=== PATIENT | male | born 1965 | race Caucasian/White ===

== ENCOUNTER 2020-01-29 12:08 | Observation (INO) ==
[2020-01-29] MEDS ORDERED: MoRPHine SULFATE 4 MG/ML 1 ML CARP\\VIAL IV STA (12:33)
[2020-01-29] MEDS ORDERED: ONDANSETRON INJ 2 MG/ML 2 ML VIAL IV STA (12:33)
--- NOTE | 2020-01-29 12:41 | Emergency Department Note ---
Impression & Plan Umbilical hernia, Abdominal pain ED Provider Note NAME: IRIS CALLES AGE: 54 SEX: M : 1965 ARRIVES VIA: Walk-In INFORMANT: Patient, ED PROVIDER(S): Elgin Hall MD Chief Complaint: Abdominal pain HPI: Patient does present with abdominal pain. The patient states his pain started Tuesday. It worsened Tuesday improved somewhat yesterday but is been persistent today. The patient is a thought this was related to diverticulitis. The patient does describe it as achy and occasionally sharp. Patient denies nausea or vomiting. The patient is had a recent bowel movement. No urinary symptoms. The patient denies any fevers or chills recent travel or coronavirus contacts. No lower extremity swelling. ROS: See HPI for pertinent positives and negatives. A total of 10 systems were reviewed and otherwise negative. Past medical history: See below Surgical history: See below Social history: See below Physical Exam: GENERAL: Mildly uncomfortable in appearance, NAD, non-toxic. EYE EXAM: Normal conjunctiva. PERRL, no anisocoria and EOM's grossly intact w/o pain. OROPHARYNX: Moist mucus membranes. Grossly normal dentition. NECK: Supple, no nuchal rigidity, no adenopathy, non-tender. No signs of meningismus. LUNGS: Clear to auscultation. Normal chest wall mechanics. HEART: Tachycardic and regular, no MRG. ABDOMEN: Abdomen soft, mild pain and redness around the umbilicus with likely associated hernia, pain with palpation, normo-active bowel sounds, no rebound or guarding. BACK: No CVA TTP. SKIN: No rashes and no bruising. UPPER EXTREMITIES: Upper extremities are grossly normal. LOWER EXTREMITIES: Grossly normal, no edema. NEURO EXAM: A&O x3, cranial nerves II-XII grossly intact, normal speech, moves all 4 extremities on command w/o issue. Differential diagnoses: Appendicitis, testicular torsion, infections, diverticulitis, UTI, obstruction, mesenteric ischemia, aortic pathology, inflammatory bowel disease, renal colic, PUD, pancreatitis, biliary pathology, hernia, volvulus, constipation, as well as other pathologies. Course: Patient was seen and evaluated the bedside. A full history and physical exam was performed. Patient was updated and given additional pain medication. I did speak with Susan Grimes PA-C General surgery. She will discuss the patient after being seen with the primary surgeon Dr. Jewell. EKG: None Imaging Studies: Radiology results as stated below per my review in the radiologist's interpretation: CT abd pelvis IV con only CLINICAL HISTORY: 54 years-old Male presenting with periumbilical pain since Tuesday, possible hernia. TECHNIQUE: Multidetector CT of the abdomen and pelvis was performed after the administration of intravenous contrast. IV contrast: 94 mL of Optiray 320. One or more dose lowering techniques were used consistent with the principles of ALARA (as low as reasonably achievable), including automatic exposure control, mA or kV adjustment to individual patient size, and/or use of iterative reconstruction. COMPARISON: None. CT DOSE (mGy.cm): The estimated cumulative dose is 1727.19 mGy.cm. FINDINGS: Vamp Liner topogram: Unremarkable. Lung bases: Normal heart size. No pericardial or pleural effusion. No focal infiltrate or nodule at the lung bases. Liver: Normal morphology. Density consistent with moderate hepatic steatosis. No focal lesion. Patent hepatic vasculature. Biliary: No intrahepatic or extrahepatic biliary ductal dilatation. Gallbladder contains gallstones. Pancreas: Mild parenchymal atrophy. Spleen: Normal. Adrenal glands: Normal. Kidneys and ureters: Normal. No hydronephrosis. Bladder: Normal. Pelvic organs: Prostate and seminal vesicles normal. Bowel: Mild diverticulosis of the proximal to mid sigmoid colon and distal descending colon without wall thickening or pericolonic inflammatory change. Scattered additional colonic diverticula. Trace sliding type hiatal hernia. Nor mal appendix. No bowel obstruction. Peritoneal cavity: No free fluid or intraperitoneal gas. Lymph nodes: No gross lymphadenopathy allowing for noncontrast technique. Vasculature: Normal noncontrast appearance. Abdominal wall: Fat-containing left inguinal hernia. Fat-containing umbilical hernia with infiltrated herniated fat. The peritoneal defect/neck has a diameter of 3.1 cm in comparison to the maximal hernia sac diameter of 4.4 cm. The hernia sac extends 4.8 cm beyond the expected anterior peritoneum. Mild surrounding skin thickening and subcutaneous fat infiltration. Musculoskeletal: Normal. IMPRESSION: 1. Fat-containing umbilical hernia. The presence of infiltrated herniated fat raises concern for strangulation. Correlate clinically for reducibility. Surgical consultation to be considered. 2. Hepatic steatosis. 3. Cholelithiasis. 4. Diverticulosis coli. No diverticulitis. ACT 112: Negative or not required by law. Electronically signed by: Raymond Michelle M.D. 01/29/2020 2:00 PM Dictated: 01/29/20 1352 Transcribed: 01/29/20 1352 Cardiac monitoring: An order was placed for continuous cardiac monitoring. The monitor shows a rate of 104 with sinus tachycardia rhythm. MDM: Patient was seen and evaluated the bedside. The patient was referred due to concern for umbilical pain and the possibility of a hernia. The patient does have some redness and tenderness to palpation over the umbilicus with likely associated hernia. The patient is a prior history of a hernia repair 40 years ago and vasectomy. The patient did a bladder completed was given pain and nausea medications and did have a CT of the abdomen pelvis completed. Patient's blood work was unremarkable. CT abdomen pelvis does show concern for a likely strangulated umbilical fat-containing hernia. No intestine involvement. Did attempt a brief reduction but was unsuccessful. Given this concern I did speak with the on-call general surgeon who kindly agreed to evaluate the patient. Patient was seen and evaluated by the surgeon patient was taken to the OR. Patient was admitted to the general surgery service. Past Med/Surg History Medical History Diverticulitis Elbow fracture, right Morbid obesity No significant medical problems Surgical History H/O vasectomy Hx of hernia repair Social History Preferred Language: Maori Communication Ability: Effective current occupational status: employed Feels Safe at Home: Yes Smoking Status: Former smoker Tobacco Type: smokeless tobacco ; Hx Alcohol Use: No Hx Substance Use: No Allergies Allergies Allergy/AdvReac Type Severity Reaction Status Date / Time No Known Allergies Allergy Unverified 01/29/20 13:03 Home Meds Home Medications Medication Instructions Recorded Confirmed acetaminophen [Tylenol Extra 500 mg PO Q6H PRN 01/29/20 01/29/20 Strength] Results & Data (ED) Vital Signs Vital Signs - 24 hr 01/29/20 12:19 01/29/20 14:09 01/29/20 14:11 Temperature 36.8 C Temperature Source Oral Pulse Rate 104 H 89 Pulse Rate [Apical] 93 H Pulse Rate [Left Finger] Pulse Rate from SpO2 Sensor 89 Pulse Rhythm Regular Pulse Strength Normal Pulse Strength [Left Finger] Respiratory Rate 20 18 28 H Respiratory Effort / Characteristics Non-Labored Spontaneous Respiratory Depth Normal Normal Respiratory Pattern Regular Tachypnea Blood Pressure 169/106 H 133/81 Blood Pressure [Left Arm] 133/81 Blood Pressure Mean 127 97 Blood Pressure Mean [Left Arm] 98 Blood Pressure Position Sitting Blood Pressure Position [Left Arm] Lying Pulse Oximetry 95 96 97 Oxygen Delivery Method Room Air Room Air Sepsis Recent Fever Within 48 Hours No Sepsis New/Unexplained Change in Mental Status No Sepsis Action Taken by Nursing No Action Required 01/29/20 14:13 01/29/20 14:20 01/29/20 14:30 Temperature Temperature Source Pulse Rate 91 H 87 81 Pulse Rate [Apical] Pulse Rate [Left Finger] Pulse Rate from SpO2 Sensor 92 H 87 83 Pulse Rhythm Pulse Strength Pulse Strength [Left Finger] Respiratory Rate 15 19 18 Respiratory Effort / Characteristics Respiratory Depth Respiratory Pattern Blood Pressure 122/75 Blood Pressure [Left Arm] Blood Pressure Mean 85 Blood Pressure Mean [Left Arm] Blood Pressure Position Blood Pressure Position [Left Arm] Pulse Oximetry 95 92 92 Oxygen Delivery Method Sepsis Recent Fever Within 48 Hours Sepsis New/Unexplained Change in Mental Status Sepsis Action Taken by Nursing 01/29/20 15:00 01/29/20 15:36 Temperature 37.2 C Temperature Source Oral Pulse Rate 88 Pulse Rate [Apical] Pulse Rate [Left Finger] 82 Pulse Rate from SpO2 Sensor 86 Pulse Rhythm Pulse Strength Pulse Strength [Left Finger] Normal Respiratory Rate 32 H 16 Respiratory Effort / Characteristics Non-Labored Spontaneous Respiratory Depth Normal Respiratory Pattern Regular Blood Pressure 132/82 Blood Pressure [Left Arm] 138/88 Blood Pressure Mean 86 Blood Pressure Mean [Left Arm] 104 Blood Pressure Position Blood Pressure Position [Left Arm] Sitting Pulse Oximetry 99 96 Oxygen Delivery Method Room Air Sepsis Recent Fever Within 48 Hours Sepsis New/Unexplained Change in Mental Status Sepsis Action Taken by Care Home Medications Current Medication List: was personally reviewed by me Additional Comments: No current medications. Laboratory Data Attestation: I reviewed the patient's lab results. Result diagrams: 01/29/20 12:45 01/29/20 12:45 Lab Results 01/29/20 01/29/20 01/29/20 Range/Units 12:45 12:45 13:00 WBC 8.30 (4.8-10.8) K/uL RBC 5.03 (4.7-6.1) M/uL Hgb 15.4 (14.0-18.0) g/dL Hct 44.1 (42-52) % MCV 87.7 (80-100) fL MCH 30.6 (25-34) pg MCHC 34.9 (32-36) g/dL RDW Std Deviation 43.9 (36.4-46.3) fL RDW Coeff of Re 13.7 (11.5-14.5) % Plt Count 225 (130-400) K/uL MPV 8.6 (7.4-10.4) fL Immature Gran % (Auto) 0.5 % Neut % (Auto) 71.2 % Lymph % (Auto) 20.1 % [place] % (Auto) 6.0 % Eos % (Auto) 2.0 % Baso % (Auto) 0.2 % Immature Gran # (Auto) 0.04 H (0.00-0.02) K/uL Neut # (Auto) 5.90 (1.4-6.5) K/uL Lymph # (Auto) 1.67 (1.2-3.4) K/uL [place] # (Auto) 0.50 (0.11-0.59) K/uL Eos # (Auto) 0.17 (0-0.5) K/uL Baso # (Auto) 0.02 (0-0.2) K/uL Sodium 140 (136-145) mmol/L Potassium 4.1 (3.5-5.1) mmol/L Chloride 110 H (98-107) mmol/L Carbon Dioxide 28 (21-32) mmol/L Anion Gap 2.0 L (3-11) BUN 15 (7-18) mg/dl Creatinine 1.08 (0.6-1.4) mg/dl Est Cr Clr Drug Dosing 118.4 ml/min Est GFR ( Amer) 89.1 Est GFR (Non-Af Amer) 76.9 BUN/Creatinine Ratio 14.0 (10-20) Glucose 108 H (70-99) mg/dl Calcium 8.9 (8.5-10.1) mg/dl Total Bilirubin 0.7 (0.2-1) mg/dl AST 27 (15-37) U/L ALT 64 (12-78) U/L Alkaline Phosphatase 76 (45-117) U/L Total Protein 7.9 (6.4-8.2) gm/dl Albumin 3.8 (3.4-5.0) gm/dl Globulin 4.1 H (2.5-4.0) gm/dl Albumin/Globulin Ratio 0.9 (0.9-2) Lipase 112 (73-393) U/L Urine Color Yellow Urine Appearance Clear (Clear) Urine pH 5.5 (4.5-7.5) Ur Specific [place] 1.021 (1.000-1.030) Urine Protein Negative (Negative) Urine Glucose (UA) Negative (Negative) Urine Ketones Negative (Negative) Urine Blood Negative (Negative) Urine Nitrite Negative (Negative) Urine Bilirubin Negative (Negative) Urine Urobilinogen Negative (Negative) Ur Leukocyte Esterase Negative (Negative) Administered Medications Cefazolin Sodium (Ancef 3000mg) 72.5 mls @ 130 mls/hr IV PREOP GUILLERMINA Stop: 01/29/20 23:59 Last Admin: 01/29/20 16:03 Dose: 130 mls/hr Documented by: [id number] Ioversol (Optiray 320 100ml) 94 ml IV ONCE PRN PRN Reason: Interaction Checking Stop: 02/02/20 13:34 Last Admin: 01/29/20 13:35 Dose: 94 ml Documented by: [id number] Discontinued Medications Hydromorphone HCl (Dilaudid) 1 mg IV NOW STA Stop: 01/29/20 13:58 Last Admin: 01/29/20 14:10 Dose: 1 mg Documented by: [id number] Sodium Chloride (Nss 1000ml) 1,000 mls @ 999 mls/hr IV .Q1H1M GUILLERMINA Stop: 01/29/20 13:45 Last Infusion: 01/29/20 14:10 Dose: 0 mls/hr Documented by: [id number] Admin: 01/29/20 13:01 Dose: 999 mls/hr Documented by: [id number] Morphine Sulfate (Morphine Sulfate) 8 mg IV NOW STA Stop: 01/29/20 12:34 Last Admin: 01/29/20 13:00 Dose: 8 mg Documented by: [id number] Ondansetron HCl (Zofran) 4 mg IV NOW STA Stop: 03/31/20 12:34 Last Admin: 01/29/20 13:01 Dose: 4 mg Documented by: [id number] Blood Pressure Blood Pressure Findings: Elevated blood pressure Blood Pressure Disposition: Referred to patients primary care provider Discharge Plan Visit Data *Final* Discharge Date/Time: 01/29/20 15:20 Chief Complaint: Abdominal Pain Stated Complaint: DOC REFERRED POSSIBLE HERNIA ED Provider: Elgin Hall Discharge Problem: Umbilical hernia, Abdominal pain Patient Disposition: Admitted As Inpatient Discharge Instructions Interventions: ED Discharge Assessment Last Done: 01/29/20 15:20 Discharge Problem: Umbilical hernia Qualifiers: Obstruction and gangrene presence: without obstruction or gangrene Qualified Code(s): K42.9 - Umbilical hernia without obstruction or gangrene Abdominal pain Qualifiers: Abdominal location: periumbilical Qualified Code(s): R10.33 - Periumbilical pain
[2020-01-29] MEDS ORDERED: SODIUM CHLORIDE 0.9% 1000ML 1,000 ML IV SCH (12:45)
[2020-01-29 12:53] LABS: Basophils # (auto) 0.02 K/uL (0-0.2); Basophils % (auto) 0.2 %; Eosinophils # (auto) 0.17 K/uL (0-0.5); Hematocrit (blood only) 44.1 % (42-52); Hemoglobin 15.4 g/dL (14.0-18.0); Immature Granulocytes # (auto) 0.04 K/uL (0.00-0.02); Immature Granulocytes % (auto) 0.5 %; Lymphocytes # (auto) 1.67 K/uL (1.2-3.4); Lymphocytes % (auto) 20.1 %; Mean Corpuscular Hemoglobin 30.6 pg (25-34); Mean Corpuscular Hgb Conc 34.9 g/dL (32-36); Mean Corpuscular Volume 87.7 fL (80-100); Mean Platelet Volume 8.6 fL (7.4-10.4); Neutrophils % (auto) 71.2 %; Platelet Count 225 K/uL (130-400); RDW Coefficient of Variation 13.7 % (11.5-14.5); RDW Standard Deviation 43.9 fL (36.4-46.3); Red Blood Count 5.03 M/uL (4.7-6.1)
[2020-01-29 13:08] LABS: Albumin Level 3.8 gm/dl (3.4-5.0); Calcium 8.9 mg/dl (8.5-10.1); Creatinine Clr Calc Pharmacy 118.4 ml/min; Est GFR (African American) 89.1; Est GFR (Non-African American) 76.9; Potassium 4.1 mmol/L (3.5-5.1)
[2020-01-29 13:10] LABS: Appearance Urine Clear (Clear); Bilirubin Urine Negative (Negative); Blood Urine Negative (Negative); Color Urine Yellow; Glucose Urine UA Negative (Negative); Ketones Urine Negative (Negative); Leukocyte Esterase Urine Negative (Negative); Nitrite Urine Negative (Negative); Protein Urine Negative (Negative); Specific Gravity Urine 1.021 (1.000-1.030); Urobilinogen Urine Negative (Negative); pH Urine 5.5 (4.5-7.5)
[2020-01-29 13:11] LABS: Albumin Globulin Ratio 0.9 (0.9-2); Bilirubin,Total 0.7 mg/dl (0.2-1); Globulin 4.1 gm/dl (2.5-4.0); Total Protein 7.9 gm/dl (6.4-8.2)
[2020-01-29] MEDS ORDERED: IOVERSOL 100ml IV PRN (13:35)
[2020-01-29] MEDS ORDERED: HYDROmorphone INJ 1 MG/ML SYRINGE IV STA (13:57)
--- NOTE | 2020-01-29 14:01 | CT Scan Report ---
CT abd pelvis IV con only CLINICAL HISTORY: 54 years-old Male presenting with periumbilical pain since Tuesday, possible herni a. TECHNIQUE: Multidetector CT of the abdomen and pelvis was performed after the administration of intra venous contrast. IV contrast: 94 mL of Optiray 320. One or more dose lowering techniques were used co nsistent with the principles of ALARA (as low as reasonably achievable), including automatic exposure control, mA or kV adjustment to individual patient size, and/or use of iterative reconstruction. COMPARISON: None. CT DOSE (mGy.cm): The estimated cumulative dose is 1727.19 mGy.cm. FINDINGS: Commercial Fisher topogram: Unremarkable. Lung bases: Normal heart size. No pericardial or pleural effusion. No focal infiltrate or nodule at t he lung bases. Liver: Normal morphology. Density consistent with moderate hepatic steatosis. No focal lesion. Patent hepatic vasculature. Biliary: No intrahepatic or extrahepatic biliary ductal dilatation. Gallbladder contains gallstones. Pancreas: Mild parenchymal atrophy. Spleen: Normal. Adrenal glands: Normal. Kidneys and ureters: Normal. No hydronephrosis. Bladder: Normal. Pelvic organs: Prostate and seminal vesicles normal. Bowel: Mild diverticulosis of the proximal to mid sigmoid colon and distal descending colon without w all thickening or pericolonic inflammatory change. Scattered additional colonic diverticula. Trace sl iding type hiatal hernia. Normal appendix. No bowel obstruction. Peritoneal cavity: No free fluid or intraperitoneal gas. Lymph nodes: No gross lymphadenopathy allowing for noncontrast technique. Vasculature: Normal noncontrast appearance. Abdominal wall: Fat-containing left inguinal hernia. Fat-containing umbilical hernia with infiltrated herniated fat. The peritoneal defect/neck has a diameter of 3.1 cm in comparison to the maximal sera ia sac diameter of 4.4 cm. The hernia sac extends 4.8 cm beyond the expected anterior peritoneum. Mil d surrounding skin thickening and subcutaneous fat infiltration. Musculoskeletal: Normal. IMPRESSION: 1. Fat-containing umbilical hernia. The presence of infiltrated herniated fat raises concern for str angulation. Correlate clinically for reducibility. Surgical consultation to be considered. 2. Hepatic steatosis. 3. Cholelithiasis. 4. Diverticulosis coli. No diverticulitis. ACT 112: Negative or not required by law. Electronically signed by: Raymond Michelle M.D. 01/29/2020 2:00 PM
[2020-01-29] MEDS ORDERED: KETOROLAC 30 MG/ML VIAL ONE (15:20)
[2020-01-29] MEDS ORDERED: ePHEDrine sulfate 50 MG/ML SYR ONE (15:20)
[2020-01-29] MEDS ORDERED: ONDANSETRON INJ 2 MG/ML 2 ML VIAL ONE (15:20)
[2020-01-29] MEDS ORDERED: GLYCOPYRROLATE 0.2 MG/ML VIAL ONE (15:20)
[2020-01-29] MEDS ORDERED: DEXAMETHASONE SOD INJ 4 MG/ML VIAL ONE (15:20)
[2020-01-29] MEDS ORDERED: fentaNYL citrate 100 MCG/2 ML VIAL ONE (15:20)
[2020-01-29] MEDS ORDERED: NEOSTIGMINE METHYLSULFATE 5 MG/5 ML SYR ONE (15:20)
[2020-01-29] MEDS ORDERED: SUCCINYLCHOLINE CHLORIDE 20 MG/ML 10 ML VIAL ONE (15:20)
[2020-01-29] MEDS ORDERED: LARYING-O-JET KIT (LTA) ONE (15:20)
[2020-01-29] MEDS ORDERED: PROPOFOL IV EMULSION 10 MG/ML 20 ML VIAL IV ONE (15:20)
[2020-01-29] MEDS ORDERED: LIDOCAINE HCL 2% 2 ML VIAL/AMP(20MG/ML) INFIL ONE (15:20)
[2020-01-29] MEDS ORDERED: MIDAZOLAM HCL 1 MG/ML 2ML VIAL ONE (15:20)
[2020-01-29] MEDS ORDERED: ROCURONIUM BROMIDE 10 MG/ML 5 ML VIAL ONE (15:20)
--- NOTE | 2020-01-29 15:24 | History & Physical Report ---
Date of Service January 29, 2020 Assessment & Plan (1) Incarcerated umbilical hernia: 54 year-old morbidly obese male who presented to ED from PCP office with likely incarcerated umbilical hernia. Pain started Tuesday and escalated on Tuesday. Overlying erythema began yesterday. No fever, nausea or vomiting. CT scan of abd/pelvis with IV Contrast showing umbilical hernia measuring 3.1 cm with incarcerated and infiltrated omentum concerning for strangulation. Unable to be reduced one exam given tenderness. Plan: Given evidence on CT scan and overlying erythema, recommend surgical repair of umbilical hernia with possible mesh. Dr. Jewell informed patient of procedure and risks of possible bleeding, infection, and recurrence of hernia. Also discussed restrictions, no heavy lifting over 25 pounds for 4 weeks. Patient understood and informed consent obtained. Keep NPO Will go to med/surg postop [address] Jewell was present during my examination and agrees with above. History of Present Illness Chief Complaint: abdominal pain at belly button Primary Care Provider: Raymond Moody MD Mundo is a pleasant 54 year-old male who was referred to ED by PCP Dr. Cheema for likely incarcerated umbilical hernia. Mundo states he had abdominal pain that started Tuesday and then slowly increased in severity on Tuesday in which he was unable to stand up straight. States pain improved slightly yesterday. Pain at the belly button. Noticed redness of his skin yesterday. Denies of any fever, chills, nausea, vomiting, chest pain, shortness of breath, inability to pass bowels, blood in stools, or black/tarry stools. Has had hernia for likely 6 years but never had any issues with it. Prior history of right inguinal he rnia repair in his 20's. No other abdominal surgery. No home medications. No allergies. Allergies Allergy/AdvReac Type Severity Reaction Status Date / Time No Known Allergies Allergy Unverified 01/29/20 13:03 Home Medications Home Medications Medication Instructions Recorded Confirmed Type acetaminophen [Tylenol Extra 500 mg PO Q6H PRN 01/29/20 01/29/20 History Strength] Past Med/Surg History Medical History (Updated 01/29/20 @ 15:24 by Susan Camp PA-C) Diverticulitis Elbow fracture, right Morbid obesity No significant medical problems Surgical History H/O vasectomy Hx of hernia repair Social History Preferred Language: Romansh Communication Ability: Effective current occupational status: employed Feels Safe at Home: Yes Smoking Status: Former smoker Tobacco Type: smokeless tobacco ; Hx Alcohol Use: No Hx Substance Use: No Review of Systems Review of Systems: All systems reviewed & are unremarkable except as noted in HPI & below Physical Exam Constitutional: WD/WN, vitals as above + morbidly obese; no acute distress Respiratory: normal respiratory effort, lungs clear to auscultation Cardiovascular: RRR, no murmur, no edema Gastrointestinal (Abdomen): Percussion/Palpation: + abdomen tender (at umbilicus on gentle touch), + guarding (at umbilicus), abdomen soft and + hernia (umbilical hernia, nonreducible, with associated erythema); abdomen not rigid Skin: no rashes, warm and dry Psychiatric: A+Ox3, euthymic affect Results & Data Results & Data ([facility]) Vital Signs (Past 12 Hours) Vital Signs Temp Pulse Pulse Resp BP BP Pulse Ox 01/29/20 14:30 81 18 122/75 92 01/29/20 14:20 87 19 92 01/29/20 14:13 91 H 15 95 01/29/20 14:11 93 H 28 H 133/81 97 01/29/20 14:09 89 18 133/81 96 01/29/20 12:19 36.8 C 104 H 20 169/106 H 95 Laboratory Results 01/29/20 01/29/20 01/29/20 Range/Units 13:00 12:45 12:45 WBC 8.30 (4.8-10.8) K/uL RBC 5.03 (4.7-6.1) M/uL Hgb 15.4 (14.0-18.0) g/dL Hct 44.1 (42-52) % MCV 87.7 (80-100) fL MCH 30.6 (25-34) pg MCHC 34.9 (32-36) g/dL RDW Std Deviation 43.9 (36.4-46.3) fL RDW Coeff of Re 13.7 (11.5-14.5) % Plt Count 225 (130-400) K/uL MPV 8.6 (7.4-10.4) fL Immature Gran % (Auto) 0.5 % Neut % (Auto) 71.2 % Lymph % (Auto) 20.1 % [place] % (Auto) 6.0 % Eos % (Auto) 2.0 % Baso % (Auto) 0.2 % Immature Gran # (Auto) 0.04 H (0.00-0.02) K/uL Neut # (Auto) 5.90 (1.4-6.5) K/uL Lymph # (Auto) 1.67 (1.2-3.4) K/uL [place] # (Auto) 0.50 (0.11-0.59) K/uL Eos # (Auto) 0.17 (0-0.5) K/uL Baso # (Auto) 0.02 (0-0.2) K/uL Sodium 140 (136-145) mmol/L Potassium 4.1 (3.5-5.1) mmol/L Chloride 110 H (98-107) mmol/L Carbon Dioxide 28 (21-32) mmol/L Anion Gap 2.0 L (3-11) BUN 15 (7-18) mg/dl Creatinine 1.08 (0.6-1.4) mg/dl Est Cr Clr Drug Dosing 118.4 ml/min Est GFR ( Amer) 89.1 Est GFR (Non-Af Amer) 76.9 BUN/Creatinine Ratio 14.0 (10-20) Glucose 108 H (70-99) mg/dl Calcium 8.9 (8.5-10.1) mg/dl Total Bilirubin 0.7 (0.2-1) mg/dl AST 27 (15-37) U/L ALT 64 (12-78) U/L Alkaline Phosphatase 76 (45-117) U/L Total Protein 7.9 (6.4-8.2) gm/dl Albumin 3.8 (3.4-5.0) gm/dl Globulin 4.1 H (2.5-4.0) gm/dl Albumin/Globulin Ratio 0.9 (0.9-2) Lipase 112 (73-393) U/L Urine Color Yellow Urine Appearance Clear (Clear) Urine pH 5.5 (4.5-7.5) Ur Specific [place] 1.021 (1.000-1.030) Urine Protein Negative (Negative) Urine Glucose (UA) Negative (Negative) Urine Ketones Negative (Negative) Urine Blood Negative (Negative) Urine Nitrite Negative (Negative) Urine Bilirubin Negative (Negative) Urine Urobilinogen Negative (Negative) Ur Leukocyte Esterase Negative (Negative) Diagnostic Findings CT abd pelvis IV con only CLINICAL HISTORY: 54 years-old Male presenting with periumbilical pain since Tuesday, possible hernia. TECHNIQUE: Multidetector CT of the abdomen and pelvis was performed after the administration of intravenous contrast. IV contrast: 94 mL of Optiray 320. One or more dose lowering techniques were used consistent with the principles of ALARA (as low as reasonably achievable), including automatic exposure control, mA or kV adjustment to individual patient size, and/or use of iterative reconstruction. COMPARISON: None. CT DOSE (mGy.cm): The estimated cumulative dose is 1727.19 mGy.cm. FINDINGS: [employer] topogram: Unremarkable. Lung bases: Normal heart size. No pericardial or pleural effusion. No focal infiltrate or nodule at the lung bases. Liver: Normal morphology. Density consistent with moderate hepatic steatosis. No focal lesion. Patent hepatic vasculature. Biliary: No intrahepatic or extrahepatic biliary ductal dilatation. Gallbladder contains gallstones. Pancreas: Mild parenchymal atrophy. Spleen: Normal. Adrenal glands: Normal. Kidneys and ureters: Normal. No hydronephrosis. Bladder: Normal. Pelvic organs: Prostate and seminal vesicles normal. Bowel: Mild diverticulosis of the proximal to mid sigmoid colon and distal descending colon without wall thickening or pericolonic inflammatory change. Scattered additional colonic diverticula. Trace sliding type hiatal hernia. Normal appendix. No bowel obstruction. Peritoneal cavity: No free fluid or intraperitoneal gas. Lymph nodes: No gross lymphadenopathy allowing for noncontrast technique. Vasculature: Normal noncontrast appearance. Abdominal wall: Fat-containing left inguinal hernia. Fat-containing umbilical hernia with infiltrated herniated fat. The peritoneal defect/neck has a diameter of 3.1 cm in comparison to the maximal hernia sac diameter of 4.4 cm. The hernia sac extends 4.8 cm beyond the expected anterior peritoneum. Mild surrounding skin thickening and subcutaneous fat infiltration. Musculoskeletal: Normal. IMPRESSION: 1. Fat-containing umbilical hernia. The presence of infiltrated herniated fat raises concern for strangulation. Correlate clinically for reducibility. Surgical consultation to be considered. 2. Hepatic steatosis. 3. Cholelithiasis. 4. Diverticulosis coli. No diverticulitis. Code Status & VTE Plan VTE Prophylaxis Plan VTE Prophylaxis will be ordered: Yes
[2020-01-29] MEDS ORDERED: BUPIVACAINE 0.5 % 5 MG/1 ML MPF 30ML VIAL ONE (15:27)
[2020-01-29] MEDS ORDERED: BACITRACIN OINT 15 GM TUBE ONE (15:27)
[2020-01-29] MEDS ORDERED: LIDOCAINE HCL 1% 20 ML VIAL ONE (15:28)
[2020-01-29] MEDS ORDERED: CEFAZOLIN 2000MG 2,000 MG/15 ML SYR IV ONE (15:28)
[2020-01-29] MEDS ORDERED: CEFAZOLIN 3000MG 72.5 ML IV SCH (15:38)
--- NOTE | 2020-01-29 15:38 | History & Physical Bridge Note ---
Date of Service January 29, 2020 History & Physical Bridge Note I have examined the patient, reviewed the History & Physical and in the interval since the performance of the History & Physical I have noted the following changes of clinical significance: no changes noted, i did talk to pt about benefits, risks and alternatives of the open repair umbilical hernia possible mesh, the risks - infection, bleeding, hernia recurrence, bowel resection, complications relate to mesh, pt understood, he agrees with the surgery, i answered all questions,
--- NOTE | 2020-01-29 15:40 | Anesthesiology Consultation ---
Date of Service January 29, 2020 Assessment & Plan (1) Encounter for pre-operative examination: Chart Review Chart Review: Acceptable Risk for Surgery and Patient NOT seen in Pre Admission Testing Consults Requested none ASA [id number] Proposed Anesthesia Anesthesia Type: General Risk / Benefits Reviewed With: PT / POA / Parent / Guardian, Accepts Plan and Informed Consent Obtained History Surgery Operation Date: 01/29/20 07:00 Proposed Procedures p Oepn Umbilical Hernia Repair, Possible Mesh - Marcella Jewell MD Height/Weight Height: 6 ft 2 in Weight: 147.5 kg Allergies Allergy/AdvReac Type Severity Reaction Status Date / Time No Known Allergies Allergy Unverified 01/29/20 13:03 Medications Home Medications Medication Instructions Recorded Confirmed Last Taken acetaminophen [Tylenol Extra 500 mg PO Q6H PRN 01/29/20 01/29/20 01/28/20 12:00 Strength] 1000 mg Active Medications Generic Name Dose Route Start Last Admin Trade Name Freq PRN Reason Stop Dose Admin Ioversol 94 ml 01/29/20 13:35 01/29/20 13:35 Optiray 320 100ml IV 02/02/20 13:34 94 ml ONCE PRN Administration Interaction Checking NPO Date Last Intake of Fluids: 01/29/20 Time Last Intake of Fluids: 07:00 Date Last Intake of Solids: 01/28/20 Time Last Intake of Solids: 22:30 Past Medical History Medical History Diverticulitis Elbow fracture, right Morbid obesity No significant medical problems Exercise / Class Metabolic Activity II 4-5 Yardwork/Stairs/Walk up hill Negative for chest pain or shortness of breath. Past Surgical History Surgical History H/O vasectomy Hx of hernia repair Past Anesthesia History No Hx of Anesthesia Complications History of PONV No Hx of PONV Social History Smoking Status: Former smoker tobacco type: smokeless tobacco Hx Alcohol Use: No Hx Substance Use: No Review of Systems Patient denies active symptoms of GERD. Physical Exam Vital Signs Last Vital Signs Temp 37.2 C 01/29/20 15:36 Pulse 82 01/29/20 15:36 Resp 16 01/29/20 15:36 BP 138/88 01/29/20 15:36 Pulse Ox 96 01/29/20 15:36 Constitutional + morbidly obese ENMT Mouth: no TMJ abnormality and oral opening not small Thyromental Distance: > or= 3.5 Finger Breadths Mallampati Class: II Neck normal visual inspection, + thick neck and + facial hair; neck extension not limited Respiratory normal respiratory effort Auscultation: lungs clear to auscultation bilaterally Cardiovascular Rate/Rhythm: regular rate and regular rhythm Heart Sounds: no murmur Neurologic moves all extremities Psychiatric Orientation: alert and oriented x 3 Testing Laboratory Results 01/29/20 12:45 01/29/20 12:45 Urine Color Yellow 01/29/20 13:00 Urine Appearance Clear (Clear) 01/29/20 13:00 Urine pH 5.5 (4.5-7.5) 01/29/20 13:00 Ur Specific [place] 1.021 (1.000-1.030) 01/29/20 13:00 Urine Protein Negative (Negative) 01/29/20 13:00 Urine Glucose (UA) Negative (Negative) 01/29/20 13:00 Urine Ketones Negative (Negative) 01/29/20 13:00 Urine Nitrite Negative (Negative) 01/29/20 13:00 Ur Leukocyte Esterase Negative (Negative) 01/29/20 13:00 Electrocardiogram Date: 01/29/20 Findings: + NSR @ (81) Per computer read, "pulmonary disease pattern", LAFB
[2020-01-29] MEDS ORDERED: PROMETHAZINE HCL 12.5 MG in SODIUM CHLORIDE 0.9% 50 ML IV PRN (16:04)
[2020-01-29] MEDS ORDERED: ATROPINE SULFATE 0.1 MG/ML 10ML SYR IV PRN (16:04)
[2020-01-29] MEDS ORDERED: fentaNYL citrate 100 MCG/2 ML VIAL IV PRN (16:04)
[2020-01-29] MEDS ORDERED: ePHEDrine sulfate 50 MG/ML AMP IV PRN (16:04)
[2020-01-29] MEDS ORDERED: HYDROmorphone INJ 1 MG/ML SYRINGE IV PRN ×3 (16:04→18:57)
[2020-01-29] MEDS ORDERED: ONDANSETRON INJ 2 MG/ML 2 ML VIAL IV PRN ×2 (16:04→17:03)
--- NOTE | 2020-01-29 16:59 | Post Operative Brief Note ---
Immediate Post Op Note v1 Date of Surgery January 29, 2020 Pre & Post Diagnosis Operation Date: 01/29/20 07:00 Pre-Op Diagnosis: incarcerated Umbilical hernia Post-Op Diagnosis: incarcerated Umbilical hernia I identified the patient and participated in the time-out.: Yes Procedure Operation Date: 01/29/20 07:00 Actual Procedures p Open Umbilical Hernia Repair(Not Applicable) - Marcella Jewell MD Surgeon Marcella Jewell MD [facility] Professor KULWINDER Chavarria Estimated Blood Loss 10 Findings Consistent with Post-Op Diagnosis incarcerated umbilical hernia with omental fat, the hernia size about 2x2cm, cellulitis, Fluids 750ml Specimens none Anesthesia Type General Complications none Disposition Accompanied Patient To Recovery: Yes Disposition: Recovery Room Overlapping Procedure I was immediately available: during the entire case.
[2020-01-29] MEDS ORDERED: ACETAMINOPHEN 325 MG TAB PO PRN (17:03)
[2020-01-29] MEDS ORDERED: ACETAMINOPHEN 1000 MG/100 ML IV IV ONE (17:27)
[2020-01-29] MEDS ORDERED: ACETAMINOPHEN 1000 MG/100 ML IV IV STA (17:27)
[2020-01-29] MEDS ORDERED: HYDROmorphone INJ 2 MG/ML SYR/VIAL ONE (17:35)
--- NOTE | 2020-01-29 17:39 | Operative Report (OR) ---
DATE OF OPERATION: 01/29/2020 PREOPERATIVE DIAGNOSIS: Incarcerated umbilical hernia. POSTOPERATIVE DIAGNOSIS: Incarcerated umbilical hernia. OPERATION: Open repair of incarcerated umbilical hernia. SURGEON: Marcella Jewell MD. FAMILY LAW ATTORNEY: Susan Camp PA-C. ANESTHESIA: General. ESTIMATED BLOOD LOSS: About 10 mL. FINDINGS: Incarcerated umbilical hernia. Hernia contained omental fat. The hernia size about 2 x 2 cm with cellulitis. COMPLICATIONS: None. INDICATIONS FOR THE PROCEDURE: This is a 54-year-old gentleman who presented to ED with 5 days of periumbilical pain with some redness around the umbilical area. The patient had a CT scan diagnosis of incarcerated umbilical hernia. I recommended to do the open repair of incarcerated umbilical hernia, possible mesh. I did talk to the patient about the benefit, risk, and alternate procedure. I indicated the risks may include but not limited to such as bleeding, infection, hernia recurrence, injury to the bowel, complication related to mesh. The patient understands. He signed informed consent and I answered all questions. DETAILS OF PROCEDURE: We brought the patient to the OR, put the patient in the supine position. The patient received SCD on bilateral legs to prevent DVT. Also, patient received 3 grams of Ancef IV for prophylactic antibiotic. The patient received general anesthesia without difficulty. The abdomen was prepped and draped in routine sterile fashion. After timeout, I made the incision just below the umbilicus, a fish-mouth incision, and then mobilized the umbilicus. We found the patient had incarcerated umbilical hernia. Then, we opened the hernia sac and found the patient had omental fat contained in the hernia sac. We were able to reduce all the hernia content and omental fat back to abdominal cavity. Then, we found the patient had a hernia size of about 2 x 2 cm. Based on the patient had cellulitis around the umbilical area, I decided to repair the hernia without mesh. Used #1 Ethibond suture interruptedly and closed the hernia fascial layer, then tied each suture one by one. The hernia closed nicely, no tension. Hemostasis was obtained. Then, I used 2-0 Vicryl and sutured the umbilicus back to original location. Then, I used 2-0 Vicryl to close subcutaneous layer interruptedly, closed skin by using 4-0 Vicryl continuous running and also we injected local anesthesia by using 1% lidocaine mixed with 0.5% Marcaine around the umbilical area. Then, we put the dressing on. The patient tolerated the procedure well. All instrument, needle and sponge count were correct x2 at the end of case. The patient was transferred to recovery room in stable condition. I attest to the content of the Intraoperative Record and any orders documented therein. Any exception s are noted below.
[2020-01-29] MEDS: LACTATED RINGER'S 1,000 ML IV SCH (18:45)
[2020-01-29] MEDS ORDERED: ACETAMINOPHEN 500 MG TAB PO PRN (18:57)
[2020-01-29] MEDS ORDERED: INFLUENZA VIRUS QUAD VACCINE 0.5 ML SYR IM ONE (19:08)
[2020-01-29] MEDS ORDERED: INFLUENZA ADMINISTRATION CHARGE ONE (19:08)
--- NOTE | 2020-01-29 19:26 | Anesthesiology Progress Note ---
Date of Service January 29, 2020 Anesthesia Post Procedure Vital Signs Vital Signs: Temp Pulse Pulse Pulse Pulse Resp BP 01/29/20 19:18 36.5 C 65 18 01/29/20 18:37 36.5 C 83 17 01/29/20 18:15 79 19 01/29/20 18:05 36.2 C L 78 20 01/29/20 17:55 79 20 01/29/20 17:45 62 12 01/29/20 17:35 70 19 01/29/20 17:25 74 15 01/29/20 17:18 36.6 C 68 17 01/29/20 15:36 37.2 C 82 16 01/29/20 15:00 88 32 H 132/82 01/29/20 14:30 81 18 122/75 01/29/20 14:20 87 19 01/29/20 14:13 91 H 15 01/29/20 14:11 93 H 28 H 01/29/20 14:09 89 18 133/81 01/29/20 12:19 36.8 C 104 H 20 169/106 H BP Pulse Ox 01/29/20 19:18 132/77 97 01/29/20 18:37 109/72 99 01/29/20 18:15 111/75 97 01/29/20 18:05 129/63 99 01/29/20 17:55 119/81 99 01/29/20 17:45 103/74 92 01/29/20 17:35 129/79 97 01/29/20 17:25 110/73 97 01/29/20 17:18 172/91 H 94 01/29/20 15:36 138/88 96 01/29/20 15:00 99 01/29/20 14:30 92 01/29/20 14:20 92 01/29/20 14:13 95 01/29/20 14:11 133/81 97 01/29/20 14:09 96 01/29/20 12:19 95 Pain Intensity Abdomen: Pain Intensity: 4 Transfer of Care Handoff Completed per policy Notes Mental Status: alert / awake / arousable and participated in evaluation Patient Amnestic to Procedure: Yes Nausea / Vomiting: adequately controlled Pain: adequately controlled Airway Patency, RR, SpO2: stable & adequate BP & HR: stable & adequate Hydration State: stable & adequate Anesthetic Complications: no major complications apparent and Pt Satisfied with anesthetic care
[2020-01-29] MEDS: CEFAZOLIN 1000MG 1,000 MG/7.5 ML SYR IV SCH (23:51)
[2020-01-30] MEDS: LACTATED RINGER'S 1,000 ML IV SCH (03:44)
[2020-01-30 06:10] LABS: Basophils # (auto) 0.01 K/uL (0-0.2); Basophils % (auto) 0.1 %; Eosinophils # (auto) 0.01 K/uL (0-0.5); Eosinophils % (auto) 0.1 %; Hematocrit (blood only) 40.6 % (42-52); Hemoglobin 13.8 g/dL (14.0-18.0); Immature Granulocytes # (auto) 0.04 K/uL (0.00-0.02); Immature Granulocytes % (auto) 0.3 %; Lymphocytes # (auto) 1.33 K/uL (1.2-3.4); Lymphocytes % (auto) 11.3 %; Mean Corpuscular Hemoglobin 30.3 pg (25-34); Mean Platelet Volume 8.8 fL (7.4-10.4); Monocytes # (auto) 0.65 K/uL (0.11-0.59); Monocytes % (auto) 5.5 %; Neutrophils # (auto) 9.71 K/uL (1.4-6.5); Neutrophils % (auto) 82.7 %; Platelet Count 235 K/uL (130-400); RDW Coefficient of Variation 13.9 % (11.5-14.5); RDW Standard Deviation 45.7 fL (36.4-46.3); Red Blood Count 4.56 M/uL (4.7-6.1); White Blood Count 11.75 K/uL (4.8-10.8)
--- NOTE | 2020-01-30 07:36 | Anesthesiology Progress Note ---
Date of Service January 30, 2020 Anesthesia Post Procedure Vital Signs Vital Signs: Temp Pulse Pulse Pulse Pulse Resp BP 01/30/20 07:05 36.7 C 70 18 01/30/20 03:19 36.6 C 98 H 18 01/29/20 23:33 36.6 C 91 H 16 01/29/20 22:31 01/29/20 21:36 36.7 C 94 H 18 01/29/20 20:33 36.6 C 94 H 18 01/29/20 19:46 36.4 C L 76 20 01/29/20 19:18 36.5 C 65 18 01/29/20 18:37 36.5 C 83 17 01/29/20 18:15 79 19 01/29/20 18:05 36.2 C L 78 20 01/29/20 17:55 79 20 01/29/20 17:45 62 12 01/29/20 17:35 70 19 01/29/20 17:25 74 15 01/29/20 17:18 36.6 C 68 17 01/29/20 15:36 37.2 C 82 16 01/29/20 15:00 88 32 H 132/82 01/29/20 14:30 81 18 122/75 01/29/20 14:20 87 19 01/29/20 14:13 91 H 15 01/29/20 14:11 93 H 28 H 01/29/20 14:09 89 18 133/81 01/29/20 12:19 36.8 C 104 H 20 169/106 H BP Pulse Ox 01/30/20 07:05 123/76 96 01/30/20 03:19 109/65 94 01/29/20 23:33 104/66 96 01/29/20 22:31 94 01/29/20 21:36 114/64 97 01/29/20 20:33 104/64 98 01/29/20 19:46 113/66 98 01/29/20 19:18 132/77 97 01/29/20 18:37 109/72 99 01/29/20 18:15 111/75 97 01/29/20 18:05 129/63 99 01/29/20 17:55 119/81 99 01/29/20 17:45 103/74 92 01/29/20 17:35 129/79 97 01/29/20 17:25 110/73 97 01/29/20 17:18 172/91 H 94 01/29/20 15:36 138/88 96 01/29/20 15:00 99 01/29/20 14:30 92 01/29/20 14:20 92 01/29/20 14:13 95 01/29/20 14:11 133/81 97 01/29/20 14:09 96 01/29/20 12:19 95 Pain Intensity Abdomen: Pain Intensity: 4 Notes Mental Status: alert / awake / arousable and participated in evaluation Patient Amnestic to Procedure: Yes Nausea / Vomiting: adequately controlled Pain: adequately controlled Airway Patency, RR, SpO2: stable & adequate BP & HR: stable & adequate Hydration State: stable & adequate Anesthetic Complications: no major complications apparent and Pt Satisfied with anesthetic care
[2020-01-30] MEDS: CEFAZOLIN 1000MG 1,000 MG/7.5 ML SYR IV SCH ×2 (07:58→15:39)
[2020-01-30] MEDS: OXYCODONE/ACETAMINOPHEN 5mg/325mg TAB PO PRN ×2 (07:58→11:57)
[2020-01-30] MEDS ORDERED: SODIUM CHLORIDE 0.9% 1000ML 1,000 ML IV ONE (08:56)
--- NOTE | 2020-01-30 11:41 | Surgery Progress Note ---
Date of Service January 30, 2020 Assessment & Plan (1) Incarcerated umbilical hernia: POD # 1 s/p open repair of incarcerated umbilical hernia without mesh given cellulitis - afebrile, mild leukocytosis of 11K (likely postoperative response) - mild postoperative pain controlled with percocet - erythema stable, no increase in cellulitis - adhesive tape allergy with skin blisters, added to allergies Plan: Continue reg diet continue pErcocet and Tylenol prn pain continue IV cefazolin PO Colace daily Bacitracin to skin blisters encouraged ambulation today hopeful discharge tomorrow morning Dr. Jewell has seen and examined pt, agrees with above Subjective feeling okay this morning pain about 3-4/10 after Percocet no nausea or vomiting, felt bloated after breakfast +flatus no bowel movement Physical Exam Constitutional: WD/WN, vitals as above no acute distress Respiratory: normal respiratory effort; no respiratory distress Gastrointestinal (Abdomen): Inspection/Auscultation: abdomen normal to inspection and normal bowel sounds; abdomen not distended Percussion/Palpation: + abdomen tender (at incision site) and abdomen soft; no guarding and abdomen not rigid Skin: no rashes, warm and dry + erythema (inferior to umbilicus no spreading more than preop) and + incision (covered with steri strips, blisters from adhesive tape) Psychiatric: A+Ox3, euthymic affect Results & Data Vital Signs (Past 12 Hours) Vital Signs Temp Pulse Resp BP Pulse Ox 01/30/20 11:11 36.7 C 86 18 138/81 94 01/30/20 07:05 36.7 C 70 18 123/76 96 01/30/20 03:19 36.6 C 98 H 18 109/65 94 Laboratory Results 01/30/20 01/29/20 01/29/20 Range/Units 05:46 13:00 12:45 WBC 11.75 H (4.8-10.8) K/uL RBC 4.56 L (4.7-6.1) M/uL Hgb 13.8 L (14.0-18.0) g/dL Hct 40.6 L (42-52) % MCV 89.0 (80-100) fL MCH 30.3 (25-34) pg MCHC 34.0 (32-36) g/dL RDW Std Deviation 45.7 (36.4-46.3) fL RDW Coeff of Re 13.9 (11.5-14.5) % Plt Count 235 (130-400) K/uL MPV 8.8 (7.4-10.4) fL Immature Gran % (Auto) 0.3 % Neut % (Auto) 82.7 % Lymph % (Auto) 11.3 % [place] % (Auto) 5.5 % Eos % (Auto) 0.1 % Baso % (Auto) 0.1 % Immature Gran # (Auto) 0.04 H (0.00-0.02) K/uL Neut # (Auto) 9.71 H (1.4-6.5) K/uL Lymph # (Auto) 1.33 (1.2-3.4) K/uL [place] # (Auto) 0.65 H (0.11-0.59) K/uL Eos # (Auto) 0.01 (0-0.5) K/uL Baso # (Auto) 0.01 (0-0.2) K/uL Sodium 140 (136-145) mmol/L Potassium 4.1 (3.5-5.1) mmol/L Chloride 110 H (98-107) mmol/L Carbon Dioxide 28 (21-32) mmol/L Anion Gap 2.0 L (3-11) BUN 15 (7-18) mg/dl Creatinine 1.08 (0.6-1.4) mg/dl Est Cr Clr Drug Dosing 118.4 ml/min Est GFR ( Amer) 89.1 Est GFR (Non-Af Amer) 76.9 BUN/Creatinine Ratio 14.0 (10-20) Glucose 108 H (70-99) mg/dl Calcium 8.9 (8.5-10.1) mg/dl Total Bilirubin 0.7 (0.2-1) mg/dl AST 27 (15-37) U/L ALT 64 (12-78) U/L Alkaline Phosphatase 76 (45-117) U/L Total Protein 7.9 (6.4-8.2) gm/dl Albumin 3.8 (3.4-5.0) gm/dl Globulin 4.1 H (2.5-4.0) gm/dl Albumin/Globulin Ratio 0.9 (0.9-2) Lipase 112 (73-393) U/L Urine Color Yellow Urine Appearance Clear (Clear) Urine pH 5.5 (4.5-7.5) Ur Specific [place] 1.021 (1.000-1.030) Urine Protein Negative (Negative) Urine Glucose (UA) Negative (Negative) Urine Ketones Negative (Negative) Urine Blood Negative (Negative) Urine Nitrite Negative (Negative) Urine Bilirubin Negative (Negative) Urine Urobilinogen Negative (Negative) Ur Leukocyte Esterase Negative (Negative) 01/29/20 Range/Units 12:45 WBC 8.30 (4.8-10.8) K/uL RBC 5.03 (4.7-6.1) M/uL Hgb 15.4 (14.0-18.0) g/dL Hct 44.1 (42-52) % MCV 87.7 (80-100) fL MCH 30.6 (25-34) pg MCHC 34.9 (32-36) g/dL RDW Std Deviation 43.9 (36.4-46.3) fL RDW Coeff of Re 13.7 (11.5-14.5) % Plt Count 225 (130-400) K/uL MPV 8.6 (7.4-10.4) fL Immature Gran % (Auto) 0.5 % Neut % (Auto) 71.2 % Lymph % (Auto) 20.1 % [place] % (Auto) 6.0 % Eos % (Auto) 2.0 % Baso % (Auto) 0.2 % Immature Gran # (Auto) 0.04 H (0.00-0.02) K/uL Neut # (Auto) 5.90 (1.4-6.5) K/uL Lymph # (Auto) 1.67 (1.2-3.4) K/uL [place] # (Auto) 0.50 (0.11-0.59) K/uL Eos # (Auto) 0.17 (0-0.5) K/uL Baso # (Auto) 0.02 (0-0.2) K/uL Sodium (136-145) mmol/L Potassium (3.5-5.1) mmol/L Chloride (98-107) mmol/L Carbon Dioxide (21-32) mmol/L Anion Gap (3-11) BUN (7-18) mg/dl Creatinine (0.6-1.4) mg/dl Est Cr Clr Drug Dosing ml/min Est GFR ( Amer) Est GFR (Non-Af Amer) BUN/Creatinine Ratio (10-20) Glucose (70-99) mg/dl Calcium (8.5-10.1) mg/dl Total Bilirubin (0.2-1) mg/dl AST (15-37) U/L ALT (12-78) U/L Alkaline Phosphatase (45-117) U/L Total Protein (6.4-8.2) gm/dl Albumin (3.4-5.0) gm/dl Globulin (2.5-4.0) gm/dl Albumin/Globulin Ratio (0.9-2) Lipase (73-393) U/L Urine Color Urine Appearance (Clear) Urine pH (4.5-7.5) Ur Specific [place] (1.000-1.030) Urine Protein (Negative) Urine Glucose (UA) (Negative) Urine Ketones (Negative) Urine Blood (Negative) Urine Nitrite (Negative) Urine Bilirubin (Negative) Urine Urobilinogen (Negative) Ur Leukocyte Esterase (Negative)
[2020-01-30] MEDS: DOCUSATE SODIUM 100 MG CAP PO SCH ×2 (11:57→20:55)
[2020-01-30] MEDS: BACITRACIN OINT 15 GM TUBE EXT SCH (12:17)
--- NOTE | 2020-01-30 13:58 | Electrocardiogram Report ---
Test Reason : Blood Pressure : / mmHG Vent. Rate : 081 BPM Atrial Rate : 081 BPM P-R Int : 164 ms QRS Dur : 110 ms QT Int : 374 ms P-R-T Axes : 050 -45 033 degrees QTc Int : 434 ms Normal sinus rhythm Left anterior fascicular block Abnormal ECG No previous ECGs available Confirmed by Fredis Mccarthy ([id number]) on 01/30/2020 1:58:22 PM Referred By: Raymond Moody Confirmed By:Fredis Mccarthy
[2020-01-31] MEDS: CEFAZOLIN 1000MG 1,000 MG/7.5 ML SYR IV SCH ×2 (00:31→08:50)
[2020-01-31 06:27] LABS: Hematocrit (blood only) 42.4 % (42-52); Hemoglobin 14.1 g/dL (14.0-18.0); Mean Corpuscular Hemoglobin 29.6 pg (25-34); Mean Corpuscular Hgb Conc 33.3 g/dL (32-36); Mean Corpuscular Volume 89.1 fL (80-100); Platelet Count 219 K/uL (130-400); RDW Coefficient of Variation 14.1 % (11.5-14.5); RDW Standard Deviation 46.1 fL (36.4-46.3); Red Blood Count 4.76 M/uL (4.7-6.1)
[2020-01-31] MEDS: DOCUSATE SODIUM 100 MG CAP PO SCH (08:50)
[2020-01-31] MEDS: BACITRACIN OINT 15 GM TUBE EXT SCH (08:51)
--- NOTE | 2020-01-31 10:01 | Surgery Progress Note ---
Date of Service January 31, 2020 Assessment & Plan (1) Incarcerated umbilical hernia: POD # 2 s/p open repair of incarcerated umbilical hernia without mesh given cellulitis - afebrile, leukocytosis resolved - mild postoperative pain controlled with percocet - erythema stable, no increase in cellulitis - adhesive tape allergy with skin blisters, added to allergies Plan: discharge to home discharge instructions reviewed Rx for Percocet prn pain and PO Augmentin x 7 days sent to pharmacy 2 week f/u surgical office , likely telemedicine visit Dr. more has seen and examined pt, agrees with above Subjective pain controlled tolerated regular diet no fever or chills Physical Exam Constitutional: WD/WN, vitals as above + morbidly obese; no acute distress Respiratory: normal respiratory effort; no respiratory distress Gastrointestinal (Abdomen): Inspection/Auscultation: abdomen normal to inspection; abdomen not distended Percussion/Palpation: + abdomen tender (at incision site) and abdomen soft; no guarding and abdomen not rigid Skin: no rashes, warm and dry + erythema (inferior to umbilicus improved) and + incision (covered wtih steri strips) Psychiatric: Orientation: alert and oriented x 3 Results & Data Vital Signs (Past 12 Hours) Vital Signs Temp Pulse Pulse Resp BP BP Pulse Ox 01/31/20 09:17 36.8 C 83 89 18 135/86 97 01/31/20 07:04 36.8 C 89 18 153/91 H 97 01/30/20 23:36 37.0 C 82 18 135/86 97 Laboratory Results 01/31/20 Range/Units 06:10 WBC 8.00 (4.8-10.8) K/uL RBC 4.76 (4.7-6.1) M/uL Hgb 14.1 (14.0-18.0) g/dL Hct 42.4 (42-52) % MCV 89.1 (80-100) fL MCH 29.6 (25-34) pg MCHC 33.3 (32-36) g/dL RDW Std Deviation 46.1 (36.4-46.3) fL RDW Coeff of Re 14.1 (11.5-14.5) % Plt Count 219 (130-400) K/uL MPV 9.0 (7.4-10.4) fL
[2020-01-31] MEDS: OXYCODONE/ACETAMINOPHEN 5mg/325mg TAB PO PRN (10:30)
--- NOTE | 2020-02-01 15:26 | Discharge Summary ---
Date of Service February 01, 2020 Admission HPI Per Admitting Provider Mundo is a pleasant 54 year-old male who was referred to ED by PCP Dr. Cheema for likely incarcerated umbilical hernia. Mundo states he had abdominal pain that started Tuesday and then slowly increased in severity on Tuesday in which he was unable to stand up straight. States pain improved slightly yesterday. Pain at the belly button. Noticed redness of his skin yesterday. Denies of any fever, chills, nausea, vomiting, chest pain, shortness of breath, inability to pass bowels, blood in stools, or black/tarry stools. Has had hernia for likely 6 years but never had any issues with it. Prior history of right inguinal hernia repair in his 's. No other abdominal surgery. No home medications. No allergies. Principal Diagnosis Incarcerated umbilical hernia Discharge Data Allergies Allergy/AdvReac Type Severity Reaction Status Date / Time adhesive tape AdvReac Intermediate skin Verified 01/30/20 11:35 blisters Consultations 01/29/20 15:15 ED Decision to Admit Stat Procedures Performed Operation Date: 01/29/20 07:00 Actual Procedures p Open Umbilical Hernia Repair(Not Applicable) - Marcella Jewell MD Ordered Studies 01/29/20 12:33 CT abd pelvis IV con only Stat Hospital Course (1) Incarcerated umbilical hernia: Patient was taken to operating room from emergency department for open umbilical hernia repair with possible mesh. Patient found to have large incarcerated hernia containing omentum. Hernia was reduced and given infiltration of skin and subcutaneous tissue a mesh was not placed. Hernia was repaired primarily. Patient tolerated procedure well and was transferred to recovery then to med/surg floor for postoperative care. POD # 1 vitals stable, moderate postop pain at incision controlled with Percocet. Erythema was still present inferior to umbilicus but stable, no spreading cellulitis. Adhesive dressing caused local reaction and skin tearing therefor was discontinued. IV Cefazolin was continued for mild cellulitis. Patient encouraged to ambulate. Regular diet continued. POD # 2 , vitals stable, pain controlled, tolerated regular diet, erythema stable/improved. Patient was discharged home with oral Augmentin for 7 days and PO Percocet as needed. Total Time Total Time Spent Total Time Spent (In Minutes): 20 Total Time Includes: Examination of the Patient, Discharge Planning and Medication Reconciliation Discharge Plan Discharge Items Patient Disposition: Home - Self-Care Reason For Visit: INCARCERATED UMBILICAL HERNIA Discharge Diagnosis: Incarcerated umbilical hernia Activity: Per Instructions section Non-emergency contact: Surgeon Call non-emergency contact if: your pain is not controlled, your pain is worsening, your pain is concerning for you, you have a fever, your temperature is above 101, your wound has increased redness, your wound has increased drainage and your wound pain has increased Follow-up/Referrals: Raymond Moody MD [Primary Care Provider] - Diet: Regular Addtl Attending Provider Instructions: ACTIVITY RECOMMENDATIONS: * Walk as much as possible. No strenuous activity until cleared by surgeon * No heavy lifting (>10 lbs.) for 4-6 weeks. SPECIAL CARE INSTRUCTIONS: * You may apply Ice to hernia repair site on and off for 20 minutes * May shower tonight. Let water run over area and pat dry. * Leave steri strips on for one week and then remove. * Wear abdominal binder daily for support. * Call the surgeon's office with any questions or concerns - (ex. temperature higher than 101 degrees F, excessive bleeding or pain). MEDICATIONS: Resume previous medications unless instructed otherwise by your surgeon. * Ibuprofen 600 mg every 6 hours with food * Tylenol 650 mg every 6 hours as needed for mild pain * Percocet 1 every 4 hours, as needed for moderate to severe pain * Would recommend OTC stool softener (Colace) daily while taking narcotic pain medication. FOLLOW UP VISIT: [facility] General Surgery office will call you to schedule a 2 week follow-up phone call visit. We are limiting in person visits due to Coronavirus. Please call the office if you have any questions or concerns. Office number If you need to fax [facility] paperwork to our office, our fax number is [phone] Pending Studies at Discharge: No Stand-Alone Forms: My [employer], Work/School Release (Inpt), Smoking Cessation Medications and DC Order Prescriptions: New oxycodone-acetaminophen 5-325 mg tablet 1 tab PO Q4H PRN (Reason: pain) Qty: 18 RF: 0 amoxicillin-pot clavulanate [Augmentin] 875-125 mg tablet 1 tab PO BID Qty: 14 RF: 0 Continued acetaminophen [Tylenol Extra Strength] 500 mg Tablet 500 mg PO Q6H PRN (Reason: Pain) RF: 0 Discharge Orders: Discharge Order (Routine); Ordered 01/31/20 Ordered By: Susan Camp Admission Data Admit Date/Time: 01/29/20 17:03 Attending Provider: Marcella Jewell Admit Provider: Marcella Jewell Primary Care Provider: Raymond Moody Other Providers: Marclela Jewell Other Interventions: Discharge Summary Assessment (RN) Last Done: 01/31/20 09:17 DC Date/Time DO NOT enter until pt leaves facility: 01/31/20 10:51
== END 2020-01-31 10:51 | disposition home or self-care (01) ==
LOC: ED 12:08 → OR 15:20 → 3E 15:20

== ENCOUNTER 2023-02-15 07:50 | Observation (INO) ==
--- NOTE | 2023-01-26 13:15 | PAT Medication Instructions ---
Medication Instructions Date of Service January 26, 2023 Home Medications acetaminophen 500 mg tablet (Tylenol Extra Strength) 500 mg PO Q6H PRN Pain multivitamin 1 tab PO QAM zinc 50 mg capsule 50 mg PO QAM DO NOT take the morning of surgery multivitamin 1 tab PO QAM zinc 50 mg capsule 50 mg PO QAM Take morning of surgery With a small sip of water, OTHERWISE NOTHING TO EAT OR DRINK AFTER MIDNIGHT: acetaminophen 500 mg tablet (Tylenol Extra Strength) 500 mg PO Q6H PRN Pain (if needed) Other Notes If you have any questions please call us at [phone] or [phone] or [phone] or [phone]
--- NOTE | 2023-02-01 08:53 | Anesthesiology Consultation ---
Date of Service February 01, 2023 Assessment & Plan (1) Encounter for pre-operative examination: - COVID screening: Per assessment on 02/01: No known COVID-19 positive contacts or current COVID-19 related symptoms. Travel screen negative. At surgeon discretion if preop Covid testing being done. - Outpatient joint assessment: Pt currently scheduled for inpatient pathway. If surgeon requests review for outpatient joint pathway, patient is an acceptable candidate for outpatient joint program from anesthesia standpoint pending surgeon's office assessment that patient is motivated, has good support and completes [facility] Program preop requirements. Chart Review Chart Review: Acceptable Risk for Surgery and Patient seen in Pre Admission Testing Teaching & Discussion Pre-Anesthesia Teaching/Discussion Notes: Instructed NPO after midnight before surgery,except medications with 15 cc of water. Medication instructions provided according to the PAT guidelines. History Surgery Operation Date: 02/16/23 07:30 Proposed Procedures p Left Total Knee Arthroplasty - Baldomero Heller DO Height/Weight Height: 6 ft 2 in Weight: 139 kg Allergies Allergy/AdvReac Type Severity Reaction Status Date / Time adhesive tape AdvReac Intermediate skin Verified 01/26/23 09:47 blisters Medications Home Medications Medication Instructions Recorded Confirmed Last Taken acetaminophen 500 mg tablet 500 mg PO Q6H PRN Pain 01/29/20 01/26/23 01/28/20 12:00 (Tylenol Extra Strength) 1000 mg multivitamin 1 tab PO QAM 01/26/23 01/26/23 Unknown zinc 50 mg capsule 50 mg PO QAM 01/26/23 01/26/23 Unknown Past Medical History Medical History Bifascicular block Diverticulitis Hx (2019) History of diverticulosis Obesity Osteoarthritis Exercise / Class Metabolic Activity II 4-5 Yardwork/Stairs/Walk up hill Past Family History Family History Other No family history of adverse response to anesthesia Past Surgical History Surgical History H/O vasectomy History of open reduction and internal fixation (ORIF) procedure right elbow History of tear of meniscus of knee joint Left - repaired ([facility], 2021) Hx of colonoscopy Hx of hernia repair incarcerated hernia repair Hx of wisdom tooth extraction Past Anesthesia History No Hx of Anesthesia Complications and No Family Hx of Anesthesia Complications History of PONV No Hx of PONV and No Hx of Motion Sickness Social History Smoking Status: Former smoker tobacco type: cigarettes Smoking cigarettes per day: Quit 30+ yrs ago Do You Dip or Chew Tobacco: No (Quit 7+ years ago) Hx Alcohol Use: No Hx Substance Use: No substance use type: does not use Review of Systems Patient denies chest pain, shortness of breath, dyspnea on exertion, fever, chills, cough, wheezing, palpitations. Physical Exam Vital Signs VITALS BP 122/77 P 80 TEMP 98.8 SP02 96%RA RESP 16 PHYSICAL Full cervical extension range of motion. Full TMJ range of motion. TMD 3 finger breaths Mallampati Score 3 Dentition: intact, + bridge (right upper side) Lungs: clear throughout to auscultation Cardiac: regular rate and rhythm, no murmurs noted Spine: normal Carotid arteries: negative bruit Extremities: no edema Lab Results Anesthesia Preop Results Results Anesthesia Widget: WBC 6.93 K/ul (4.8-10.8) 02/01/23 Hgb 14.6 g/dl (14.0-18.0) 02/01/23 Hct 42.0 % (42.0-52.0) 02/01/23 Plt 219 K/uL (130-400) 02/01/23 Na 138 mmol/L (136-145) 02/01/23 K 4.1 mmol/L (3.5-5.1) 02/01/23 Cl 107 mmol/L (98-107) 02/01/23 CO2 26 mmol/L (21-32) 02/01/23 BUN 21 mg/dl (6-23) 02/01/23 Creat 1.05 mg/dl (0.6-1.4) 02/01/23 Glucose Level 97 mg/dl (70-99(Fasting)) 02/01/23 PT 10.3 Seconds (9.0-12.0) 02/01/23 PTT 26.3 Seconds (21.0-31.0) 02/01/23 INR 1.0 (0.9-1.1) 02/01/23 HA1c 5.6 % (4.5-5.6) 02/01/23 Urine Color Yellow 02/01/23 Urine Appearance Clear (Clear) 02/01/23 Urine pH 6.0 (4.5-7.5) 02/01/23 Urine Specific [place] 1.021 (1.000-1.030) 02/01/23 Urine Protein Negative (Negative) 02/01/23 Urine Glucose (UA) Negative (Negative) 02/01/23 Urine Ketones Negative (Negative) 02/01/23 Urine Blood Negative (Negative) 02/01/23 Urine Nitrite Negative (Negative) 02/01/23 Urine Bilirubin Negative (Negative) 02/01/23 Urine Urobilinogen Negative (Negative) 02/01/23 Urine Leukocyte Esterase Negative (Negative) 02/01/23 Blood Type A Positive 02/01/23 Antibody Screen NEGATIVE 02/01/23 Testing Electrocardiogram Date: 04/02/22 NSR at 87bpm. Possible LAE. iRBBB. LAFB. 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 Chest X-Ray Date: 02/01/23 FINDINGS: Lung volumes are normal. Biapical densities are unchanged and favor scarring. There is no pneumothorax or pleural effusion. Cardiac size is normal. Mediastinal contours are normal. There is no evidence for pulmonary edema. IMPRESSION: No acute cardiopulmonary findings. COVID-19 Risk Screen Screening Information COVID-19 Screen Date: 02/01/23 Exposure 21 Days Family/Household +COVID Last 21 Days: No Exposure 10 Days Any COVID Exposure Last 10 Days: No Symptoms Last 10 Days Experienced COVID Sx Last 10 Days: No + COVID 0-90 Days COVID + in Last 0-90 Days: No
--- NOTE | 2023-02-01 12:26 | History & Physical Report ---
Date of Service February 01, 2023 date of surgery: 02/16/23 Procedure: Left Total Knee Arthroplasty Surgeon: Baldomero Heller Assessment & Plan (1) Arthritis of knee, left: Plan: Patient has failed conservative measures and after discussing further care would like to proceed with surgical invention. Plan to be left total knee arthroplasty. Patient states he does live alone and would not recommend outpatient joint program, he does state that once he gets home his brother lives nearby and can stay with him. Would recommend in-home physical therapy after discharge, will place on aspirin 81 mg twice a day for 1 month postop DVT prophylaxis. We will then perform in-home physical therapy 2 weeks and then transition outpatient physical therapy at [facility] he otherwise has no other questions or concerns The risks and benefits have been discussed including, but not limited to, risk of infection, nerve injury, stiffness, loss of motion, failure to improve, etc. Reasonable outcomes and options of treatment were discussed. An explanation of appropriate alternatives to the procedure that may be advantageous were discussed and their risks and benefits, as well as the risks and benefits of not proceeding with treatment. I offered to answer any additional inquiries concerning the treatment involved. All the patient's questions were answered. The patient is agreeable, understanding of the treatment plan and alternatives, and wishes to proceed with the treatment plan. History of Present Illness Chief Complaint: left knee pain Primary Care Provider: Raymond Moody MD Mundo is a pleasant 57-year-old male who presents for preop evaluation prior to his left total knee replacement. He has previous left knee arthroscopy performed by Dr. Gil last year, he is also undergone viscosupplementation as well as corticosteroid injection without any improvement. He rates his current pain is 7 out of 10. He has complaints of pain decreased range of motion and stiffness, he is also tried oral anti-inflammatories and Tylenol without relief. At this point time is failed conservative measures and is discussing further care with Dr. Heller would like to proceed with a left total knee replacement Allergies Allergy/AdvReac Type Severity Reaction Status Date / Time adhesive tape AdvReac Intermediate skin Verified 01/26/23 09:47 blisters Home Medications Medication Instructions Recorded Confirmed Type acetaminophen 500 mg tablet 500 mg PO Q6H PRN Pain 01/29/20 01/26/23 History (Tylenol Extra Strength) multivitamin 1 tab PO QAM 01/26/23 01/26/23 History zinc 50 mg capsule 50 mg PO QAM 01/26/23 01/26/23 History Past Med/Surg History Medical History Bifascicular block Diverticulitis Hx (2019) History of diverticulosis Obesity Osteoarthritis Surgical History H/O vasectomy History of open reduction and internal fixation (ORIF) procedure right elbow History of tear of meniscus of knee joint Left - repaired ([facility], 2021) Hx of colonoscopy Hx of hernia repair incarcerated hernia repair Hx of wisdom tooth extraction Family History Other No family history of adverse response to anesthesia Social History Smoking Status: Former smoker Tobacco Type: Cigarettes Cigarettes Per Day: Quit 30+ yrs ago; Second Hand Exposure: No; Hx Alcohol Use: No Hx Substance Use: No Preferred Language: Panamanian Communication Ability: Effective Lead Java Programmer Required: No Beliefs That Will Affect Care: None Current Living Situation: Alone current occupational status: employed Feels Safe at Home: Yes Assistive Devices: None Review of Systems Review of Systems: All systems reviewed & are unremarkable except as noted in HPI & below Constitutional: no fever, no chills and no sweats Respiratory: no cough and no dyspnea Cardiovascular: no chest pain, no dyspnea and no orthopnea Gastrointestinal: no abdominal pain, no nausea and no vomiting Musculoskeletal: as per Subjective / HPI Physical Exam Physical Exam: HT: 6ft 2in WT: 139kg Constitutional: WD/WN, vitals as above no acute distress Respiratory: normal respiratory effort, lungs clear to auscultation no respiratory distress, no labored breathing and does not use accessory muscles Cardiovascular: RRR, no murmur, no edema Gastrointestinal (Abdomen): normal bowel sounds, soft, nontender, no hepatosplenomegaly Musculoskeletal: Knee: + knee abnormal to inspection (LEFT KNEE ), + effusion (+1 effusion), + surgical incision (well healed portals), + limited ROM of knee (ROM 0/3/110), + knee ROM with crepitation, + joint line tenderness (medial joint line) and + Hever's sign positive; no deformity, no skin erythema, no ecchymosis, no valgus laxity, no varus laxity, anterior drawer test negative, Yas's sign negative and pivot shift test negative Results & Data Results & Data Diagnostic Findings Left Knee X-ray: left knee series confirm degenerative changes to the left knee, greatest medial compartments and patellofemoral joint, showing joint space narrowing, osteophyte formation and subchondral sclerosis. no acute bony pathology noted.
[~2023-02-15 07:50] MED LIST: ACETAMINOPHEN 500 MG TAB PO SCH; CeleBREX 200 MG CAP PO SCH; FAMOTIDINE 20 MG TAB PO SCH; General Order Problem(s) SCH; LR 500ML BOLUS, THEN 15ML/HR IV SCH; METOCLOPRAMIDE HCL 10 MG TABLET PO SCH; PREGABALIN 75 MG CAP PO SCH; ROPIVACAINE 0.5% 5 MG/ML 30 ML VIAL ONE; ROPIVACAINE 0.5% HCL/PF 150 MG, BUPIVACAINE 0.75% MPF 20 ML, EPINEPHrine 30MG/30ML (OR ... INFIL SCH; TRANEXAMIC ACID 1,000 MG **IV Intra-op IV SCH; TRANEXAMIC ACID 1,000 MG **IV Pre-op IV SCH; dexAMETHasone 4 MG TAB PO SCH
--- NOTE | 2023-02-15 08:24 | History & Physical Bridge Note ---
Date of Service February 15, 2023 History & Physical Bridge Note I have examined the patient, reviewed the History & Physical and in the interval since the performance of the History & Physical I have noted the following changes of clinical significance: no changes noted
[2023-02-15] MEDS ORDERED: PROPOFOL IV EMULSION 10 MG/ML 20 ML VIAL IV ONE ×2 (09:48→12:29)
[2023-02-15] MEDS ORDERED: LIDOCAINE 2% MPF LOCAL 5 ML VIAL ONE (09:48)
[2023-02-15] MEDS ORDERED: MIDAZOLAM HCL 1 MG/ML 2ML VIAL ONE ×2 (09:48)
[2023-02-15] MEDS ORDERED: fentaNYL citrate PF 100 MCG/2 ML VIAL ONE (09:48)
[2023-02-15] MEDS ORDERED: fentaNYL citrate PF 100 MCG/2 ML VIAL IV PRN (10:06)
[2023-02-15] MEDS ORDERED: HYDROmorphone INJ 2 MG/ML SYR/VIAL IV PRN (10:06)
[2023-02-15] MEDS ORDERED: ONDANSETRON INJ 2 MG/ML 2 ML VIAL IV PRN ×2 (10:06→13:46)
[2023-02-15] MEDS ORDERED: ePHEDrine sulfate 50 MG/ML AMP IV PRN (10:06)
[2023-02-15] MEDS ORDERED: ATROPINE SULFATE 0.1 MG/ML 10ML SYR IV PRN (10:06)
[2023-02-15] MEDS ORDERED: ORTHO JOINT ANESTHETIC ONE (10:42)
[2023-02-15] MEDS ORDERED: ONDANSETRON INJ 2 MG/ML 2 ML VIAL ONE (11:11)
--- NOTE | 2023-02-15 12:06 | Operative Report ---
Post Operative Report Pre & Post Diagnosis Operation Date: 02/15/23 10:25 Pre-Op Diagnosis: Left Osteoarthritis Knee Post-Op Diagnosis: Left Osteoarthritis Knee I identified the patient and participated in the time-out.: Yes Procedure Operation Date: 02/15/23 10:25 Actual Procedures p Left Total Knee Arthroplasty(Left utilizing [employer] persona total knee arthroplasty patient matched size femur 10 standard tibia F polyeleven medial constrained patella 31 oval- Baldomero Heller DO Surgeon Baldomero Heller DO Finish Specialist Emmanuel MIRAMONTES Estimated Blood Loss 5 Findings Consistent with Post-Op Diagnosis Patient presents with tricompartmental DJD with eburnated bone medial osteophytes subchondral sclerosis marginal osteophytes moderate to large effusion Specimens Bone and cartilage Drains Medium bore Hemovac Anesthesia Type MAC Spinal Regional Complications none Disposition Accompanied Patient To Recovery: No Disposition: Recovery Room Indications Patient presents with end-stage DJD of the left knee is no response to conservative management clinic physical therapy anti-inflammatories relative rest activity modification arthroscopy presents for total knee arthroplasty Description of Procedure After proper prepping and draping of the left lower extremity anterior midline i ncision was made over the region of the extensor extensor mechanism after meticulous hemostasis was obtained and maintained in subcutaneous tissues a medial parapatellar incision was made The patella was subluxed lateralward the medial lateral gutter were cleaned from any hypertrophic synovitis and scar tissue of the distal femoral block was placed and the distal femoral osteotomy cut was made subsequently the chamfers anterior and posterior osteotomy cuts were made utilizing the 4-in-1 block the tibia was subsequently subluxed anteriorward medial and ateral meniscal remnants were excised in their entirety remnants of the anterior and posterior cruciate ligaments were excised in their entirety excellent exposure of the proximal tibia was obtained the tibial osteotomy guide was placed on the proximal tibial osteotomy cut was made once again the knee was irrigated with copious amounts of sterile saline solution the patella was subsequently everted lateralward thickened scar tissue around the patella was removed the patella was subsequently cut utilizing a freehand technique and was drilled prepared for final preparation and placement of patella socially flexion-extension gaps were checked and the equal and symmetric trials were placed to the appropriate femoral and tibial trials with poly-spacer being placed for equal flexion and extension gaps and full range of motion including extension to 0 and flexion to 140 the trial components after having been taken to recovery range of motion was subsequently removed meticulous hemostasis was obtained and maintained subsequently a knee block injection of joint cocktail including ropivacaine 0.5% 150 mg. Bupivacaine 0.5% epinephrine 1-200,030 mL's toradol 30 mg dexamethasone 4 mg ketamine 10 mg clonidine 100 micrograms normal saline solution 30 mg was infiltrated into the soft tissues of the posterior knee medial lateral gutters and periosteal synovium special attention was paid to protect neurovascular structures at all times subsequently trial components having been removed the knee was irrigated with sterile saline solution. debris was removed the proximal tibia was subsequently prepared and was made ready for the placement of the tibial component tibial component was also cemented and tamped into position the femoral component was subsequently placed and cemented in the position the patellar component was subsequently cemented in position because hemostasis once again obtained and maintained wound having been thoroughly irrigated with debridement and debridement lavage was performed as well as a medial parapatellar incision closed with #1 Vicryl in interrupted fashion subcutaneous was closed with #2 Vicryl skin was closed with skin clips. PA-C was necessary for prepping and drapping as well as wound closure of deep fascia Sub cutaneous tissue and skin and was necessary for the case. A sterile compressive dressing was placed patient was taken to recovery in stable condition of report dictated by Arron I attest to the content of the Intraoperative Record and any orders documented therein. Any exceptions are noted below.Due to the complex nature of the procedure, the entire surgery was performed with the operational assistance of Emmanuel MIRAMONTES. The medical assistant per diem, under direct supervision, was involved in the actual performance of all aspects of the surgical procedure including hemostasis, tissue retraction and incision, instrument management, patient positioning, and wound closure. I attest to the content of the Intraoperative Record and any orders documented therein. Any exceptions are noted below.
[2023-02-15] MEDS ORDERED: bisacodyL 10 MG SUPP PR PRN (13:46)
[2023-02-15] MEDS ORDERED: NALOXONE HCL 0.4 MG/1 ML VIAL/CARP IV PRN (13:46)
[2023-02-15] MEDS ORDERED: MAGNESIUM HYDROXIDE SUSP 30 ML UDC PO PRN (13:46)
[2023-02-15] MEDS ORDERED: diphenhydrAMINE 50 MG/ML VIAL IV PRN (13:46)
--- NOTE | 2023-02-15 13:47 | XRay Report ---
XR knee LT 1 or 2V routine CLINICAL HISTORY: Surgical Post Op TECHNIQUE: 2 views of the left knee were obtained. Comparison: None available at the time of this dictation. FINDINGS: Patient is status post total knee arthroplasty with expected postsurgical changes including soft tiss ue swelling and subcutaneous emphysema. No periarticular lucency or hardware fracture is seen. IMPRESSION: Expected postoperative appearance status post placement of total knee arthroplasty. ACT 112: Negative or not required by law. Electronically signed by: Jorden Solano M.D. 02/15/2023 1:45 PM
--- NOTE | 2023-02-15 14:40 | Anesthesiology Progress Note ---
Date of Service February 15, 2023 Anesthesia Post Procedure Vital Signs Vital Signs: Temp Pulse Pulse Resp BP Pulse Ox O2 Del Method 02/15/23 14:30 85 18 112/70 93 Room Air 02/15/23 14:15 85 20 114/74 94 Room Air 02/15/23 14:00 80 20 115/75 94 Room Air 02/15/23 13:45 74 18 113/72 93 Room Air 02/15/23 13:30 36.4 C L 83 20 117/77 94 Room Air 02/15/23 13:20 76 20 115/77 94 Room Air 02/15/23 13:10 79 20 122/72 95 Room Air 02/15/23 13:00 83 20 107/79 93 Room Air 02/15/23 12:54 36.2 C L 84 18 105/72 98 Oxymask 02/15/23 08:27 36.7 C 81 20 149/88 H 96 Room Air O2 Flow Rate 02/15/23 14:30 02/15/23 14:15 02/15/23 14:00 02/15/23 13:45 02/15/23 13:30 02/15/23 13:20 02/15/23 13:10 02/15/23 13:00 02/15/23 12:54 6 02/15/23 08:27 Pain Intensity Left Knee: Pain Intensity: 1 Transfer of Care Handoff Completed per policy Notes Mental Status: alert / awake / arousable and participated in evaluation Patient Amnestic to Procedure: Yes Nausea / Vomiting: adequately controlled Pain: adequately controlled Airway Patency, RR, SpO2: stable & adequate BP & HR: stable & adequate Hydration State: stable & adequate Neuraxial Anesthesia: was administered and sensory block is resolving Anesthetic Complications: no major complications apparent and Pt Satisfied with anesthetic care
[2023-02-15] MEDS: ACETAMINOPHEN 500 MG TAB PO SCH ×2 (14:44→21:30)
[2023-02-15] MEDS: SODIUM CHLORIDE 0.9% 1000ML 1,000 ML IV SCH ×2 (16:59→23:49)
[2023-02-15] MEDS: oxyCODONE HCL IR 5 MG TAB (IMMEDIATE RELEASE) PO PRN ×2 (17:09→23:48)
[2023-02-15] MEDS: ceFAZolin 2000MG 2,000 MG/15 ML SYR IV SCH (18:11)
[2023-02-15] MEDS: HYDROmorphone INJ 0.5 MG/0.5 ML SYR IV PRN (19:53)
[2023-02-15] MEDS: DOCUSATE SODIUM 100 MG CAP PO SCH (19:55)
[2023-02-15] MEDS: ASPIRIN 81 MG ECTAB PO SCH (19:55)
[2023-02-15] MEDS: SENNA 8.6 MG TAB PO SCH (19:55)
[2023-02-16] MEDS: ceFAZolin 2000MG 2,000 MG/15 ML SYR IV SCH (03:19)
[2023-02-16] MEDS: ACETAMINOPHEN 500 MG TAB PO SCH ×3 (05:47→22:38)
[2023-02-16] MEDS: ASPIRIN 81 MG ECTAB PO SCH ×2 (08:02→20:10)
[2023-02-16] MEDS: DOCUSATE SODIUM 100 MG CAP PO SCH ×2 (08:03→20:11)
[2023-02-16] MEDS: MULTIVITAMIN TAB PO SCH (08:03)
[2023-02-16 08:55] LABS: Hemoglobin 13.8 g/dl (14.0-18.0); Mean Corpuscular Hemoglobin 30.4 pg (25.0-34.0); Mean Corpuscular Hgb Conc 35.4 g/dL (32.0-36.0); Mean Corpuscular Volume 85.9 fL (80.0-100.0); Mean Platelet Volume 9.7 fL (9.4-12.4); Platelet Count 219 K/uL (130-400); RDW Coefficient of Variation 13.3 % (11.5-14.5); RDW Standard Deviation 41.8 fL (36.4-46.3); Red Blood Count 4.54 M/uL (4.70-6.10); White Blood Count 14.02 K/ul (4.8-10.8)
--- NOTE | 2023-02-16 08:58 | Orthopedic Progress Note ---
Date of Service February 16, 2023 Assessment & Plan (1) Arthritis of knee, left: Plan: Postop day 1 status post left total knee arthroplasty PT/OT protocols. Weightbearing as tolerated. DVT prophylaxis-aspirin p.o. twice daily, SCDs, VEELYN dutton. Pain management as written. A.m. labs pending DC planning-patient lives alone. He is considering home health services at this time. We will see how he progresses with his physical therapy. We also discussed [facility]. We will recheck later today to see how he is progressing. Admission and Anticipated Discharge Date Admission Date: February 15, 2023 Subjective Postop day 1 Patient sitting up in bed awake and alert. No complaints this morning. Pain is controlled. Denies shortness of breath, chest pain, lightheadedness. Physical Exam Physical Exam: Dressings are clean, dry, and intact. Calves are soft nontender. Neurovascular intact. Toes are mobile. Patient has good dorsiflexion and plantarflexion of his left foot. Hemovac drainage was 250 cc from the previous shift. Results & Data Vital Signs (Past 12 Hours) Vital Signs Temp Pulse Resp BP BP Pulse Ox O2 Del Method 02/16/23 07:26 36.6 C 60 17 113/70 97 Room Air 02/16/23 03:32 36.4 C L 61 16 102/65 97 Room Air 02/15/23 23:50 36.4 C L 73 16 110/68 95 Room Air
[2023-02-16 09:07] LABS: BUN Creatinine Ratio 17.9 (10-20); Calcium 8.7 mg/dl (8.6-10.3); Creatinine Clr Calc Pharmacy 123.4 ml/min; Est GFR (African American) 101.9 ml/min; Est GFR (Non-African American) 87.9 ml/min; Potassium 4.4 mmol/L (3.5-5.1)
[2023-02-16] MEDS: oxyCODONE HCL IR 5 MG TAB (IMMEDIATE RELEASE) PO PRN ×3 (09:50→20:09)
--- NOTE | 2023-02-16 11:44 | Communication Note ---
Date of Service: February 16, 2023 Pt with increased pain issues late this AM. Pt had Oxycodone at 9:50 this AM. Would like to have his IV Hydromorphone secondary to continued pain. Will plan on continuing his stay for another day due to pain control and hemovac drainage.
[2023-02-16] MEDS: HYDROmorphone INJ 0.5 MG/0.5 ML SYR IV PRN (11:56)
[2023-02-16] MEDS: SENNA 8.6 MG TAB PO SCH (20:10)
[2023-02-17] MEDS: oxyCODONE HCL IR 5 MG TAB (IMMEDIATE RELEASE) PO PRN ×2 (02:18→07:23)
[2023-02-17] MEDS: ACETAMINOPHEN 500 MG TAB PO SCH ×2 (05:17→14:36)
[2023-02-17] MEDS: MULTIVITAMIN TAB PO SCH (08:15)
[2023-02-17] MEDS: ASPIRIN 81 MG ECTAB PO SCH (08:15)
[2023-02-17] MEDS: DOCUSATE SODIUM 100 MG CAP PO SCH (08:15)
--- NOTE | 2023-02-17 09:32 | Orthopedic Progress Note ---
Date of Service February 17, 2023 Assessment & Plan (1) Status post left knee replacement: Plan: 57 yo male stable POD #2 s/p left TKA 1. Med management 2. DVT prophylaxis- ASA, SCDs 3. PT/OT 4. D/C planning- home w/ HH Admission and Anticipated Discharge Date Admission Date: February 15, 2023 Supervising Physician Co-Signing Physician Notes Patient seen and examined. Agree with KULWINDER Tamayo's note as above. Patient's pain is better controlled today. He is working with therapy. Plan for discharge home today. Subjective Pt just completed ambulation with PT, denies significant pain or problems Physical Exam Physical Exam: Dressing C/D/I. ROBERT dressing in place, Toes NVI, calves soft, nontender Results & Data Vital Signs (Past 12 Hours) Vital Signs Temp Pulse Resp BP Pulse Ox O2 Del Method 02/17/23 07:39 36.7 C 66 16 117/80 99 Room Air 02/16/23 22:23 36.6 C 78 18 109/71 95 Room Air
== END 2023-02-17 16:42 | disposition home health service (06) ==
LOC: PACUINP 07:50 → ASU 07:50 → 3E 16:25